=== PATIENT | female | born 1940 | race Caucasian/White ===

== ENCOUNTER 2020-09-09 12:02 | Emergency (ER) | payer MEDICARE, BC ==
[~2020-09-09] VITALS: Ht 167.6 cm; Wt 92.3 kg
[~2020-09-09 12:02] MED LIST: CARV6.253 PO; CHOL2000 PO; LEVO200T8 PO; LOSA50TA3 PO; MULT-620 PO; ROSU20TA2 PO
[2020-09-09 12:07] VITALS: BP 166/64
== END 2020-09-09 17:48 | disposition home or self-care (01) ==
LOC: ER 12:03
DX: K59.00 Constipation, unspecified (principal); J45.909 Unspecified asthma, uncomplicated; Z85.038 Personal history of other malignant neoplasm of large intestine; Z85.118 Personal history of other malignant neoplasm of bronchus and lung; Z98.890 Other specified postprocedural states; Z60.2 Problems related to living alone; Z88.8 Allergy status to other drugs, medicaments and biological substances; Z79.899 Other long term (current) drug therapy
CPT/HCPCS: 74018; 99283